=== PATIENT | male | born 1980 | race Caucasian/White ===

== ENCOUNTER 2018-03-21 11:19 | Day surgery (SDC) | payer BC, MEDICAID ==
[2018-03-21] MEDS ORDERED: LIDOCAINE 2% (SDV) 5 ML INJ (12:19)
[2018-03-21] MEDS ORDERED: PROPOFOL 40 ML (12:19)
[2018-03-21] MEDS ORDERED: ACETAMINOPHEN 500 MG TAB PO (12:30)
[2018-03-21] MEDS ORDERED: ALBUTEROL 0.083% (NEB) 2.5 MG/3 ML AMP HHN (12:30)
[2018-03-21] MEDS ORDERED: FENTAnyl 50 MCG/ML VIAL IV (12:30)
[2018-03-21] MEDS ORDERED: ONDANSETRON 4 MG INJ IV (12:30)
== END 2018-03-21 15:12 | disposition home or self-care (01) ==
LOC: GIL 11:19
DX: K21.9 Gastro-esophageal reflux disease without esophagitis (principal)
CPT/HCPCS: 43239; 88305; 88312